=== PATIENT | female | born 1990 | race Asian ===

== ENCOUNTER 2016-07-12 09:25 | Inpatient (IN) | payer SELFPAY ==
[~2016-07-12] VITALS: Ht 167.6 cm; Wt 75.7 kg
[2016-07-12] MEDS ORDERED: OXYTOCIN 20 UNITS/LR PREMIX 1,000 ML IV SCH ×2 (09:45→10:26)
[2016-07-12] MEDS ORDERED: CARBOPROST 250 MCG/ML AMP IM PRN (09:45)
[2016-07-12] MEDS ORDERED: NALBUPHINE 10 MG/ML AMP IVP PRN (09:45)
[2016-07-12] MEDS ORDERED: IBUPROFEN 800 MG TAB PO PRN (09:45)
[2016-07-12] MEDS ORDERED: PROMETHAZINE 25 MG/ML VIAL IVP PRN (09:45)
[2016-07-12] MEDS ORDERED: METHYLERGONOVINE 0.2 MG/ML AMP IM SCH (09:45)
[2016-07-12] MEDS ORDERED: OXYTOCIN 10 UNITS/ML VIAL IM ONE (10:00)
[2016-07-12 10:04] VITALS: BP 110/67
[2016-07-12 10:22] LABS: BASOPHILS # (AUTO) 0.1 K/uL (0.00-0.22); BASOPHILS % (AUTO) 0.9 % (0.0-2.0); EOSINOPHILS # (AUTO) 0.1 K/uL (0-0.4); EOSINOPHILS % (AUTO) 1.8 % (0.0-4.0); HEMATOCRIT 39.4 % (36-48); HEMOGLOBIN 13.2 g/dL (12.0-16.0); LYMPHOCYTES % (AUTO) 13.9 % (20.5-51.1); MEAN CORPUSCULAR HEMOGLOBIN 31 pg (27-31); MEAN CORPUSCULAR HGB CONC 34 g/dL (33-37); MEAN CORPUSCULAR VOLUME 93 fL (80-94); MONOCYTES # (AUTO) 0.5 K/uL (0.8-1.0); MONOCYTES % (AUTO) 7.1 % (1.7-9.3); NEUTROPHILS # (AUTO) 5.4 K/uL (1.8-7.7); NEUTROPHILS % (AUTO) 76.3 % (42.2-75.2); PLATELET COUNT (AUTO) 131 K/uL (140-450); RED BLOOD CELL COUNT(AUTO) 4.22 MIL/uL (4.20-5.40); RED CELL DISTRIBUTION WIDTH 14.1 % (11.6-13.7); WHITE BLOOD COUNT (AUTO) 7.1 K/uL (4.8-10.8)
[2016-07-12 10:32] LABS: APPEARANCE,URINE CLEAR (CLEAR); BILIRUBIN,URINE NEGATIVE (NEGATIVE); BLOOD, URINE 1+ (NEGATIVE); COLOR,URINE YELLOW (YELLOW); LEUKOCYTE ESTERASE ,URINE NEGATIVE (NEGATIVE); NITRITE, URINE NEGATIVE (NEGATIVE); PROTEIN,URINE NEGATIVE (NEGATIVE); UGLUCOSE NEGATIVE (NEGATIVE); UROBILINOGEN,URINE 0.2 EU/dL (0.2 - 1)
[2016-07-12 10:38] LABS: WBC,URINE 0-5 (RARE) /HPF (0-5)
[2016-07-12 10:39] LABS: BACTERIA,URINE 1+ /HPF (None Seen); RBC,URINE 11-20 (MOD) /HPF (0-5); SQUAMOUS EPITHELIAL CELL,UR 0-3 (FEW) /LPF (0-3 (FEW))
[2016-07-12 10:43] LABS: ANION GAP 13.1 (8-16); CALCIUM 8.6 mg/dL (8.5-10.1); CARBON DIOXIDE 24.8 mmol/L (21-32); CREATININE 0.5 mg/dL (0.6-1.3); POTASSIUM 3.9 mmol/L (3.5-5.1)
[2016-07-12 10:49] LABS: ALBUMIN 2.7 g/dL (3.4-5.0); TOTAL BILIRUBIN 0.5 mg/dL (0.0-1.0); TOTAL PROTEIN, SERUM 6.2 g/dL (6.4-8.2)
[2016-07-12] MEDS: LACTATED RINGERS 1,000 ML IV SCH ×2 (10:58→16:56)
[2016-07-12] MEDS ORDERED: AMPICILLIN 2,000 MG in NACL 0.9% 100 ML IV SCH (11:00)
[2016-07-12] MEDS ORDERED: AMPICILLIN 2,000 MG VIAL ONE (11:19)
[2016-07-12] MEDS ORDERED: ROPIVACAINE 0.2%/NS PREMIX 250 ML EPI ONE (12:06)
[2016-07-12] MEDS ORDERED: OXYTOCIN 20 UNITS/LR PREMIX 1,000 ML IV ONE (12:44)
[2016-07-12] MEDS ORDERED: AMPICILLIN 1,000 MG VIAL ONE ×2 (14:55→18:50)
[2016-07-12] MEDS: AMPICILLIN 1,000 MG VIAL IVP SCH ×2 (15:08→18:51)
[2016-07-12] MEDS ORDERED: OXYTOCIN 10 UNITS/ML VIAL ONE (19:27)
[2016-07-12] MEDS ORDERED: HYDROcodone/APAP 5/325 MG 1 TAB TAB PO PRN (20:25)
[2016-07-12] MEDS ORDERED: oxyCODONE/APAP 5/325 MG 1 TAB TAB PO PRN (20:25)
[2016-07-12] MEDS ORDERED: BENZOCAINE/MENTHOL 20%-0.5% 60 GM CAN TP PRN (20:25)
[2016-07-12] MEDS ORDERED: MEASLES, MUMPS, AND RUBELLA 1 VIAL SQVAC PRN (20:25)
[2016-07-12] MEDS ORDERED: OXYTOCIN 10 UNITS/ML VIAL IM PRN (20:25)
[2016-07-12] MEDS ORDERED: TEMAZEPAM 15 MG CAP PO PRN (20:25)
[2016-07-12] MEDS ORDERED: METHYLERGONOVINE 0.2 MG/ML AMP IM PRN (20:25)
[2016-07-12] MEDS ORDERED: WITCH HAZEL 40 PAD PACKAGE TP PRN (20:25)
[2016-07-12] MEDS ORDERED: DOCUSATE SOD/SENNA 50/8.6 MG 1 TAB PO SCH (21:00)
[2016-07-13] MEDS: IBUPROFEN 800 MG TAB PO PRN ×2 (00:13→19:41)
[2016-07-13 06:23] LABS: HEMATOCRIT 34.6 % (36-48); HEMOGLOBIN 11.5 g/dL (12.0-16.0)
--- NOTE | 2016-07-13 08:12 | NUR ---
PATIENT HAS BEEN SCREENED AND CATEGORIZED LOW NUTRITION RISK. PATIENT WILL BE SEEN WITHIN 7 DAYS OF ADMISSION. 07/18/[address]
[2016-07-14] MEDS ORDERED: IBUP-2213 PO (11:21)
== END 2016-07-14 15:15 | disposition home or self-care (01) | DRG 775 ==
LOC: MLD 09:25 → MFCC 22:20
PROVIDERS: ADMIT Obstetrics & Gynecology; ATTEND Obstetrics & Gynecology
PROC: 10D07Z6 Extraction of Products of Conception, Vacuum, Via Natural or Artificial Opening (ICD-10-PCS; principal; 2016-07-12)
PROC: 0W8NXZZ Division of Female Perineum, External Approach (ICD-10-PCS; 2016-07-12)
PROC: 00HU33Z Insertion of Infusion Device into Spinal Canal, Percutaneous Approach (ICD-10-PCS; 2016-07-12)
PROC: 3E0R3CZ (ICD-10-PCS; 2016-07-12)
PROC: 3E0234Z Introduction of Serum, Toxoid and Vaccine into Muscle, Percutaneous Approach (ICD-10-PCS; 2016-07-13)
DX: O42.92 Full-term premature rupture of membranes, unspecified as to length of time between rupture and onset of labor (principal); Z37.0 Single live birth; Z3A.38 38 weeks gestation of pregnancy; Z23 Encounter for immunization
CPT/HCPCS: 36415; 51702; 80053; 81001; 85018; 85025; 86592; 86886; 86900; 86901; 87086; 90715; J0290; J2590; J2795; J7120